=== PATIENT | female | born 1990 | race Hispanic/Latino ===

== ENCOUNTER 2018-02-25 07:25 | Emergency (ER) | payer SELFPAY ==
[2018-02-25 08:13] LABS: Absolute Lymphocytes (CBC) 1.2 K/uL (0.7-4.9); Absolute Monocytes 0.9 K/uL (0.1-1.3); Absolute Neutrophil 8.2 K/uL (1.8-8.0); Basophils % 0.4 % (0-1.3); Eosinophils % 0.1 % (0-4.4); Hematocrit 39.9 % (36.0-45.0); Lymphocytes % 11.8 % (15.3-44.8); MPV 8.8 fL (7.6-11.3); Monocytes % 8.9 % (3.3-12.3); RBC Red Blood Cell Count 4.76 M/uL (3.86-4.86)
[2018-02-25] MEDS ORDERED: ONDANSETRON 4 MG/2 ML VIAL ONE (08:13)
[2018-02-25] MEDS ORDERED: MORPHINE 4 MG/ML SYR ONE (08:13)
[2018-02-25] MEDS ORDERED: CEFTRIAXONE/SWI 1gm 1 GM/10 ML SYR ONE (08:14)
[2018-02-25] MEDS ORDERED: NA CHLORIDE 0.9% 1,000 ML ONE (08:14)
[2018-02-25 08:18] LABS: Urine Blood 1+ (NEG); Urine Glucose NEGATIVE (NEG); Urine Protein 2+ (NEG); Urine Specific Gravity 1.025 (1.005-1.030)
[2018-02-25 08:20] LABS: Urine Bacteria 20-50 /HPF (<20); Urine RBC 20-50 /HPF (NONE SEEN)
[2018-02-25 08:21] LABS: Urine Culture Reflex Order REFLEXED
[2018-02-25 08:29] LABS: ALT/SGPT 26 U/L (12-78); AST/SGOT 37 U/L (15-37); Albumin 3.5 g/dL (3.4-5.0); Alkaline Phosphatase 106 U/L (45-117); BUN Blood Urea Nitrogen 4 mg/dL (7-18); Bicarbonate 22 mmol/L (21-32); Bilirubin Direct 0.4 mg/dL (0-0.2); Bilirubin Total 1.6 mg/dL (0.2-1.0); Glucose Level 106 mg/dL (74-106); Lipase 91 U/L (73-393); Potassium 3.2 mmol/L (3.5-5.1); Protein, Total 7.8 g/dL (6.4-8.2); Sodium Level 139 mmol/L (136-145)
--- NOTE | 2018-02-25 09:51 | RAD REPORT ---
EXAM DESCRIPTION: CT - Abdomen Pelvis W Contrast - 02/25/2018 9:20 am CLINICAL HISTORY: Back pain, abdominal pain, history of gastric sleeve procedure performed out of mi untry 2 months earlier COMPARISON: CT imaging April 2016 TECHNIQUE: Biphasic, helical CT imaging of the abdomen and pelvis was performed following 100 ml non -ionic IV contrast. No oral contrast administered. All CT scans are performed using dose optimization technique as appropriate and may include automated exposure control or mA/KV adjustment according to patient size. FINDINGS: No suspicious findings in the lung bases. The liver, spleen, and pancreas show no suspicious findings. Gallbladder and biliary tree are also wi thout suspicious finding. Gallstones can be occult. Active gallbladder process is not suspected. No hydronephrosis. No solid mass of the kidneys. Both kidneys show heterogeneity in the enhancement p attern of the parenchyma particularly on the venous phase imaging. Jefferson of the right ureter are mild ly prominent. Urinary bladder jefferson are mildly prominent though this is difficult to accurately asses s in a contracted state. No uterus abnormality. A 2.5 centimeter right ovarian cyst is present. No fa llopian tube dilatation. Physiologic quantity of free fluid is present in the cul-de-sac. Attenuation value does not suggest blood. Gastric sleeve surgical changes are evident. No bowel wall thickening, edema or other finding to susp ect postsurgical complication. There are no acute upper abdominal findings. No dilated large or small bowel. No free air, pneumatosis or other site of inflammatory stranding. No hernia, mass or bulky lymphadenopathy. No suspicious bony findings. IMPRESSION: Suspected mild bilateral pyelonephritis. Correlation is needed with Clinical OR UA abnor malities. Urinary bladder wall is mildly prominent though difficult to accurately assess due to contraction. Cy stitis is not excluded. No abnormalities associated with a recent gastric sleeve. No acute GI process seen.
--- NOTE | 2018-02-25 09:58 | EDPHYS ---
Physician Documentation [facility] Name: Nat Hoover Age: 27 yrs Sex: Female : 1990 Arrival Date: 02/25/2018 Time: 07:28 Bed 14 Private MD: None, None ED Physician Kade Moore HPI: 02/25 07:49 This 27 yrs old Female presents to ER via Ambulatory with complaints of Back pm1 Pain, Nausea. 07:49 The patient complains of pain in the left low back and right low back. The pain does pm1 not radiate. Onset: The symptoms/episode began/occurred 3 day(s) ago. Modifying factors: The symptoms are alleviated by nothing. the symptoms are aggravated by nothing. Associated signs and symptoms: Pertinent positives: dysuria, fever, nausea, Pertinent negatives: diarrhea, vomiting. Severity of pain: in the emergency department the pain is actually worse. The patient has not experienced similar symptoms in the past. The patient has not recently seen a physician. Patient with bilateral flank pain for 3 days with burning with urination. Fever yesterday that resolved without the use of antipyretics. Reports 105 oral temperature. Patient took shower and drank Gatorade for fever reduction. 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 - Social history:: Smoking status: Patient uses tobacco products, denies chronic smoking, but will smoke occasionally. - Ebola Screening: : No symptoms or risks identified at this time. ROS: 07:49 Eyes: Negative for injury, pain, redness, and discharge, ENT: Negative for injury, pm1 pain, and discharge, Neck: Negative for injury, pain, and swelling, Cardiovascular: Negative for chest pain, palpitations, and edema, Respiratory: Negative for shortness of breath, cough, wheezing, and pleuritic chest pain, Abdomen/GI: Negative for abdominal pain, nausea, vomiting, diarrhea, and constipation. 07:49 MS/Extremity: Negative for injury and deformity, Skin: Negative for injury, rash, and discoloration, Neuro: Negative for headache, weakness, numbness, tingling, and seizure. 07:49 Constitutional: Positive for fever, Negative for poor PO intake. 07:49 Back: Positive for flank pain, bilaterally. 07:49 : Positive for burning with urination, foul smelling urine, Negative for vaginal bleeding, vaginal discharge. Exam: 07:49 Constitutional: This is a well developed, well nourished patient who is awake, alert, pm1 and in no acute distress. Head/Face: Normocephalic, atraumatic. Eyes: Pupils equal round and reactive to light, extra-ocular motions intact. Lids and lashes normal. Conjunctiva and sclera are non-icteric and not injected. Cornea within normal limits. Periorbital areas with no swelling, redness, or edema. ENT: Nares patent. No nasal discharge, no septal abnormalities noted. Tympanic membranes are normal and external auditory canals are clear. Oropharynx with no redness, swelling, or masses, exudates, or evidence of obstruction, uvula midline. Mucous membranes moist. Neck: Trachea midline, no thyromegaly or masses palpated, and no cervical lymphadenopathy. Supple, full range of motion without nuchal rigidity, or vertebral point tenderness. No Meningismus. Chest/axilla: Normal chest wall appearance and motion. Nontender with no deformity. No lesions are appreciated. 07:49 Respiratory: Lungs have equal breath sounds bilaterally, clear to auscultation and percussion. No rales, rhonchi or wheezes noted. No increased work of breathing, no retractions or nasal flaring. 07:49 Skin: Warm, dry with normal turgor. Normal color with no rashes, no lesions, and no evidence of cellulitis. MS/ Extremity: Pulses equal, no cyanosis. Neurovascular intact. Full, normal range of motion. 07:49 Cardiovascular: Rate: tachycardic, Rhythm: regular, Pulses: no pulse deficits are appreciated, Heart sounds: normal, normal S1and S2. 07:49 Abdomen/GI: Inspection: abdomen appears normal, Bowel sounds: normal, Palpation: soft, mild abdominal tenderness, in the suprapubic area, mass, is not appreciated, rebound tenderness, is not appreciated. 07:49 Back: pain, that is mild, of the left low back and right low back, ROM is normal, normal spinal alignment noted. 07:49 Neuro: Orientation: is normal, Motor: moves all fours, Gait: is steady, at a normal pace, without difficulty. Vital Signs: 07:33 BP 128 / 83; Pulse 126; Resp 18 S; Temp 98.8(O); Pulse Ox 96% on R/A; Weight 81.65 kg aa5 (R); Height 5 ft. 1 in. (154.94 cm) (R); Pain 10/10; 08:00 BP 106 / 67; Pulse 104; Resp 16 S; Pulse Ox 97% on R/A; aa5 08:42 BP 125 / 59; Pulse 62; Resp 18; Pulse Ox 96% on R/A; Pain 0/10; jb4 07:33 Body Mass Index 34.01 (81.65 kg, 154.94 cm) aa5 MDM: 07:33 Patient medically screened. pm1 07:55 Data reviewed: vital signs. Data interpreted: Pulse oximetry: on room air is 96 %. pm1 Interpretation: normal. 09:55 Counseling: I had a detailed discussion with the patient and/or guardian regarding: the pm1 historical points, exam findings, and any diagnostic results supporting the discharge/admit diagnosis, lab results, radiology results, the need for outpatient follow up, to return to the emergency department if symptoms worsen or persist or if there are any questions or concerns that arise at home. 02/25 07:39 Order name: Urine Microscopic Only; Complete Time: 08:31 pm1 02/25 07:42 Order name: Basic Metabolic Panel; Complete Time: 08:31 pm1 02/25 07:42 Order name: CBC with Diff; Complete Time: 08:16 pm1 02/25 07:42 Order name: Hepatic Function; Complete Time: 08:31 pm1 02/25 07:42 Order name: Lipase; Complete Time: 08:31 pm02/25 07:59 Order name: Urine Dipstick--Ancillary (enter results); Complete Time: 08:21 bd 02/25 07:44 Order name: CT Abd/Pelvis - W/Contrast: IV contrast only; Complete Time: 09:53 pm1 02/25 07:59 Order name: Urine --Ancillary (enter results); Complete Time: 08:21 bd 02/25 08:21 Order name: Urine Culture EDMS 02/25 07:39 Order name: Urine Dipstick-Ancillary (obtain specimen); Complete Time: 08:06 pm1 02/25 07:39 Order name: Urine Test (obtain specimen); Complete Time: 08:06 pm1 02/25 07:42 Order name: IV Saline Lock; Complete Time: 08:05 pm1 02/25 07:42 Order name: Labs collected and sent; Complete Time: 08:06 pm1 Administered Medications: 08:05 CANCELLED (Duplicate Order): Rocephin 1 grams IV at calculated rate once; Given slow IV jb4 push per pharmacy instructions 08:27 Drug: NS 0.9% 1000 ml Route: IV; Rate: 1000 ml; Site: right antecubital; jb4 09:30 Follow up: Response: No adverse reaction; IV Status: Completed infusion jb4 08:28 Drug: Zofran 4 mg Route: IVP; Site: right antecubital; jb4 08:35 Follow up: Response: No adverse reaction jb4 08:30 Drug: morphine 4 mg Route: IVP; Site: right antecubital; jb4 08:35 Follow up: Response: No adverse reaction jb4 08:34 Drug: Rocephin 1 grams Route: IV; Rate: calculated rate; Site: right antecubital; jb4 08:36 Follow up: IV Status: Completed infusion jb4 08:41 Follow up: Response: No adverse reaction jb4 Disposition: 15:22 Co-signature as Attending Physician, Kade Moore MD. rn Disposition: 02/25/18 09:57 Discharged to Home. Impression: Pyelonephritis. - Condition is Stable. - Discharge Instructions: Pyelonephritis, Adult. - Prescriptions for Bactrim DS 800- 160 mg Oral Tablet - take 1 tablet by ORAL route every 12 hours for 14 days; 28 tablet. Tylenol- Codeine #3 300-30 mg Oral Tablet - take 2 tablets by ORAL route every 6 hours As needed; 20 tablet. Zofran 4 mg Oral Tablet - take 1 tablet by ORAL route every 8 hours As needed; 20 tablet. - Medication Reconciliation Form, Thank You Letter, Antibiotic Education, Prescription Opioid Use, Work release form, Family Work Release form. - Follow up: Emergency Department; When: As needed; Reason: Worsening of condition. Follow up: Private Physician; When: 2 - 3 days; Reason: Recheck today's complaints, Continuance of care, Re-evaluation by your physician. - Problem is new. - Symptoms have improved. Signatures: Dispatcher [employer] EDKade Vasquez MD MD rn Calderon, Audri RN RN aa5 Ulises Fox NP EMERGENCY MEDICAL SERVICE MANAGER pm1 Osman Ward RN RN jb4 Corrections: (The following items were deleted from the chart) 08:05 08:05 Rocephin 1 grams IV at calculated rate once; Given slow IV push per pharmacy jb4 instructions ordered. jb4 11:03 09:57 02/25/2018 09:57 Discharged to Home. Impression: Pyelonephritis. Condition is aa5 Stable. Forms are Medication Reconciliation Form, Thank You Letter, Antibiotic Education, Prescription Opioid Use. Follow up: Emergency Department; When: As needed; Reason: Worsening of condition. Follow up: Private Physician; When: 2 - 3 days; Reason: Recheck today's complaints, Continuance of care, Re-evaluation by your physician. Problem is new. Symptoms have improved. pm1
--- NOTE | 2018-02-25 09:58 | ER ---
Nurse's Notes [facility] Name: Nat Hoover Age: 27 yrs Sex: Female : 1990 Arrival Date: 02/25/2018 Time: 07:28 Bed 14 Private MD: None, None Diagnosis: Pyelonephritis Presentation: 02/25 07:32 Presenting complaint: Patient states: lower back pain since Friday. Pt also reports aa5 nausea, denies vomiting. Reports cloudy urine x 2 days. Pt states "my fever was 105.0 F last night and I took a shower". 07:32 Transition of care: patient was not received from another setting of care. Onset of aa5 symptoms was February 2018. Risk Assessment: Do you want to hurt yourself or someone else? Patient reports no desire to harm self or others. Initial Sepsis Screen: Does the patient meet any 2 criteria? HR > 90 bpm. Does the patient have a suspected source of infection? No. Patient's initial sepsis screen is negative. Care prior to arrival: None. 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 - Social history:: Smoking status: Patient uses tobacco products, denies chronic smoking, but will smoke occasionally. - Ebola Screening: : No symptoms or risks identified at this time. Screenin:55 Abuse screen: Denies threats or abuse. Nutritional screening: No deficits noted. jb4 Tuberculosis screening: No symptoms or risk factors identified. Fall Risk IV access (20 points). Total Hughes Fall Scale indicates No Risk (0-24 pts). Assessment: 07:46 General: Appears in no apparent distress. uncomfortable, Behavior is calm, cooperative. jb4 Pain: Complains of pain in suprapubic area and back Pain does not radiate. Pain currently is 10 out of 10 on a pain scale. at worst was 10 out of 10 on a pain scale. level that patient reports is acceptable is 2 out of 10 on a pain scale. Quality of pain is described as crampy, Pain began 2-3 days ago. Neuro: Level of Consciousness is awake, alert, obeys commands, Oriented to person, place, time, situation. Cardiovascular: Heart tones S1 S2 present Patient's skin is warm and dry. Respiratory: Airway is patent Respiratory effort is even, unlabored, Respiratory pattern is regular, symmetrical, Breath sounds are clear bilaterally. GI: Abdomen is flat, Bowel sounds present X 4 quads. Abdomen is tender to palpation in suprapubic area Reports nausea. : Reports burning with urination. EENT: No signs and/or symptoms were reported regarding the EENT system. Derm: No signs and/or symptoms reported regarding the dermatologic system. Musculoskeletal: No signs and/or symptoms reported regarding the musculoskeletal system. 08:42 Reassessment: Patient and/or family updated on plan of care and expected duration. Pain jb4 level reassessed. Patient is alert, oriented x 3, equal unlabored respirations, skin warm/dry/pink. Pt reports feeling better \\T\\ denies nausea and pain after Zofran and morphine was given. Patient denies pain at this time. Patient states feeling better. 09:25 Reassessment: Patient and/or family updated on plan of care and expected duration. Pain jb4 level reassessed. Patient is alert, oriented x 3, equal unlabored respirations, skin warm/dry/pink. Pt wheeled back from CT. Vital Signs: 07:33 BP 128 / 83; Pulse 126; Resp 18 S; Temp 98.8(O); Pulse Ox 96% on R/A; Weight 81.65 kg aa5 (R); Height 5 ft. 1 in. (154.94 cm) (R); Pain 10/10; 08:00 BP 106 / 67; Pulse 104; Resp 16 S; Pulse Ox 97% on R/A; aa5 08:42 BP 125 / 59; Pulse 62; Resp 18; Pulse Ox 96% on R/A; Pain 0/10; jb4 07:33 Body Mass Index 34.01 (81.65 kg, 154.94 cm) aa5 ED Course: 07:28 Patient arrived in ED. mr 07:28 None, None is Private Physician. mr 07:32 Arm band placed on Patient placed in an exam room, on a stretcher. aa5 07:33 Marinas, Ulises, SUCTION DREDGE DUMPING SUPERVISOR is PHCP. pm1 07:33 Kade Moore MD is Attending Physician. pm1 07:40 Triage completed. aa5 07:45 Osman Ward, RN is Primary Nurse. jb4 07:45 Patient has correct armband on for positive identification. Bed in low position. Call jb4 light in reach. Side rails up X 1. Pulse ox on. NIBP on. 07:45 Urine collected: clean catch specimen, cloudy. jb4 07:55 Initial lab(s) drawn, by ky, sent to lab. Inserted saline lock: 22 gauge in right jb4 antecubital area, using aseptic technique. Blood collected. 09:19 CT Abd/Pelvis - W/Contrast: IV contrast only In Process Unspecified. EDMS 10:20 No provider procedures requiring assistance completed. IV discontinued, intact, jb4 bleeding controlled. Administered Medications: 08:05 CANCELLED (Duplicate Order): Rocephin 1 grams IV at calculated rate once; Given slow IV jb4 push per pharmacy instructions 08:27 Drug: NS 0.9% 1000 ml Route: IV; Rate: 1000 ml; Site: right antecubital; jb4 09:30 Follow up: Response: No adverse reaction; IV Status: Completed infusion jb4 08:28 Drug: Zofran 4 mg Route: IVP; Site: right antecubital; jb4 08:35 Follow up: Response: No adverse reaction jb4 08:30 Drug: morphine 4 mg Route: IVP; Site: right antecubital; jb4 08:35 Follow up: Response: No adverse reaction jb4 08:34 Drug: Rocephin 1 grams Route: IV; Rate: calculated rate; Site: right antecubital; jb4 08:36 Follow up: IV Status: Completed infusion jb4 08:41 Follow up: Response: No adverse reaction jb4 Outcome: 09:57 Discharge ordered by . pm1 10:20 Discharged to home ambulatory. jb4 10:20 Condition: stable 10:20 Discharge instructions given to patient, family, Instructed on discharge instructions, follow up and referral plans. medication usage, Demonstrated understanding of instructions, follow-up care, medications, Prescriptions given X 3. 10:30 Patient left the ED. aa5 Addendum: 02/28/2018 09:30 Addendum: Culture Results: Positive urine culture. Bacteria is resistant to, has h b intermediate sensitivity, or is not tested against prescribed antibiotics. Report given to PAULETTE for further evaluation and then to director volunteer services for follow up with patient. Phone call Attempt #1 voicemail box full. 14:20 Addendum: Culture Results: Phone call Attempt #2 voicemail box full. h b Signatures: Dispatcher [employer] Nica McnultyRuby, RN RN aa5 Ulises Fox, SUCTION DREDGE DUMPING SUPERVISOR SUCTION DREDGE DUMPING SUPERVISOR pm1 Meghan Gallegos RN RN Osman Ward RN RN jb4 Corrections: (The following items were deleted from the chart) 02/25 08:30 07:46 Pain: Complains of pain in suprapubic area and back Pain does not radiate. Pain jb4 currently is 8 out of 10 on a pain scale. at worst was 10 out of 10 on a pain scale. Quality of pain is described as crampy, jb4 08:33 07:55 Patient has correct armband on for positive identification. Bed in low position. jb4 Call light in reach. Side rails up X 1. jb4 08:33 07:55 Pulse ox on. NIBP on. jb4 jb4 12:56 11:03 Patient left the ED. aa5 aa5
== END 2018-02-25 11:03 | disposition home or self-care (01) ==
LOC: ER 07:25
DX: N12 Tubulo-interstitial nephritis, not specified as acute or chronic (principal); Z72.0 Tobacco use
CPT/HCPCS: 36415; 74177; 80048; 80076; 81003; 81015; 81025; 83690; 85025; 87077; 87086; 87088; 87186; 96361; 96374; 96375; 99284; J0696; J2405; J7030; Q9967

== ENCOUNTER 2018-02-25 23:22 | Emergency (ER) | payer SELFPAY ==
[2018-02-25] MEDS ORDERED: NA CHLORIDE 0.9% 1,000 ML ONE (23:58)
[2018-02-25] MEDS ORDERED: ONDANSETRON 4 MG/2 ML VIAL ONE (23:58)
[2018-02-26 00:08] LABS: Absolute Lymphocytes (CBC) 0.7 K/uL (0.7-4.9); Absolute Monocytes 0.7 K/uL (0.1-1.3); Absolute Neutrophil 8.9 K/uL (1.8-8.0); Basophils % 0.3 % (0-1.3); Hematocrit 37.2 % (36.0-45.0); Lymphocytes % 6.8 % (15.3-44.8); MCH 29.4 pg (27.0-35.0); MCV 84.1 fL (80-100); MPV 8.8 fL (7.6-11.3); Monocytes % 6.3 % (3.3-12.3); RBC Red Blood Cell Count 4.43 M/uL (3.86-4.86)
[2018-02-26 00:18] LABS: ALT/SGPT 24 U/L (12-78); AST/SGOT 26 U/L (15-37); Alkaline Phosphatase 96 U/L (45-117); BUN Blood Urea Nitrogen 5 mg/dL (7-18); Bicarbonate 24 mmol/L (21-32); Bilirubin Direct 0.3 mg/dL (0-0.2); Bilirubin Total 0.9 mg/dL (0.2-1.0); Glucose Level 143 mg/dL (74-106); Lipase 51 U/L (73-393); Potassium 3.5 mmol/L (3.5-5.1); Protein, Total 7.4 g/dL (6.4-8.2); Sodium Level 141 mmol/L (136-145)
--- NOTE | 2018-02-26 01:45 | ER ---
Nurse's Notes [facility] Name: Nat Hoover Age: 27 yrs Sex: Female : 1990 Arrival Date: 02/25/2018 Time: 23:23 Bed 7 Private MD: Diagnosis: Syncope and collapse Presentation: 02/25 23:37 Presenting complaint: Patient states: Pt reports she had several episodes of vomiting ea today and has not been feeling well since Friday. reports pt had 2 episodes of fainting , last one reported to be 15 minutes ago. Patient reports she is unable to tolerate medication, food or liquids. States "I started throwing up after I started taking the antibiotics and the other medications". Transition of care: patient was not received from another setting of care. Onset of symptoms was February 25, 2018. Risk Assessment: Do you want to hurt yourself or someone else? Patient reports no desire to harm self or others. Initial Sepsis Screen: Does the patient meet any 2 criteria? No. Patient's initial sepsis screen is negative. Does the patient have a suspected source of infection? No. Patient's initial sepsis screen is negative. Care prior to arrival: None. 23:37 Method Of Arrival: Ambulatory ea 23:37 Acuity: FERNANDO 3 ea Triage Assessment: 23:43 General: Appears uncomfortable, Behavior is appropriate for age. Pain: Denies pain. GI: ea Reports nausea, vomiting. 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 - Social history:: Smoking status: Patient/guardian denies using tobacco. - Ebola Screening: : No symptoms or risks identified at this time. Screenin/08 23:44 Abuse screen: Denies threats or abuse. Nutritional screening: No deficits noted. ea Tuberculosis screening: No symptoms or risk factors identified. Fall Risk Fall in past 12 months (25 points). Assessment: 23:45 General: Appears in no apparent distress. uncomfortable, Behavior is calm, cooperative, bs1 appropriate for age, flat. Pain: Denies pain. Neuro: Level of Consciousness is awake, alert, obeys commands, Oriented to person, place, time, situation, Appropriate for age Moves all extremities. Full function Gait is steady, Speech is normal, Facial symmetry appears normal, Pupils are PERRLA, Intact Reports a syncopal episode reports passing out twice for a couple of seconds after TAKING MEDICATION PRESCRIBED TO HER TODAY IN ER. Neuro: Denies blurred vision dizziness, numbness headache. Cardiovascular: Denies chest pain, lightheadedness, shortness of breath, Heart tones S1 S2 present Capillary refill < 3 seconds Patient's skin is warm and dry. Respiratory: Airway is patent Trachea midline Respiratory effort is even, unlabored, Respiratory pattern is regular, symmetrical, Breath sounds are clear bilaterally. GI: Abdomen is round non-distended, Bowel sounds present X 4 quads. Abd is soft and non tender X 4 quads. Reports intolerance of fluids, intolerance of food, nausea, vomiting. : No signs and/or symptoms were reported regarding the genitourinary system. EENT: No signs and/or symptoms were reported regarding the EENT system. Derm: Skin is intact, Skin is pink, warm \\T\\ dry. normal. Musculoskeletal: Circulation, motion, and sensation intact. Capillary refill < 3 seconds, Range of motion: intact in all extremities. 02/26 00:45 Reassessment: Informed patient/family of POC/pending lab results. bs1 02:00 Reassessment: Patient appears in no apparent distress at this time. Patient and/or bs1 family updated on plan of care and expected duration. Pain level reassessed. Patient is alert, oriented x 3, equal unlabored respirations, skin warm/dry/pink. Informed patient of dc instructions/POC. Vital Signs: 02/25 23:44 BP 107 / 83; Pulse 89; Resp 18; Temp 98.2; Pulse Ox 98% on R/A; Weight 79.38 kg; Height ea 5 ft. 1 in. (154.94 cm); Pain 0/10; 02/26 00:30 BP 97 / 53; Pulse 65; Resp 12; Pulse Ox 98% on R/A; bs1 01:15 BP 101 / 58; Pulse 60; Resp 16 S; Pulse Ox 98% on R/A; bs1 02/25 23:44 Body Mass Index 33.07 (79.38 kg, 154.94 cm) ea ED Course: 02/25 23:23 Patient arrived in ED. am2 23:33 Lino Porras MD is Attending Physician. gs 23:40 Arm band placed on right wrist. Patient placed in an exam room, on a stretcher, on ea pulse oximetry. 23:41 Triage completed. ea 23:45 Patient has correct armband on for positive identification. Bed in low position. Call ea light in reach. Side rails up X2. 23:56 Inserted saline lock: 20 gauge in right antecubital area, using aseptic technique. ea Blood collected. 23:59 Maria Elena Casper, MARCIN is Primary Nurse. bs1 02/26 01:44 Jade Harrison DO is Referral Physician. gs 02:07 No provider procedures requiring assistance completed. IV discontinued, bleeding bs1 controlled, No redness/swelling at site. Pressure dressing applied. Administered Medications: 02/25 23:59 Drug: NS 0.9% 1000 ml Route: IV; Rate: 1 bolus; Site: right antecubital; bs1 08 02:09 Follow up: IV Status: Completed infusion bs1 02/25 23:59 Drug: Zofran 4 mg Route: IVP; Site: right antecubital; bs1 02/26 02:08 Follow up: Response: No adverse reaction bs1 Outcome: 01:45 Discharge ordered by . 02:07 Discharged to home ambulatory, with significant other. bs1 02:07 Condition: stable 02:07 Discharge instructions given to patient, Instructed on discharge instructions, follow up and referral plans. medication usage, Demonstrated understanding of instructions, follow-up care, medications, Prescriptions given X 1. 02:11 Patient left the ED. bs1 Signatures: Bebe Larry am2 Tamara Zamora RN RN ea Starr, Gregory, MD MD gs Salazar, Brittany, RN RN bs1
--- NOTE | 2018-02-26 01:45 | EDPHYS ---
Physician Documentation [facility] Name: Nat Hoover Age: 27 yrs Sex: Female : 1990 Arrival Date: 02/25/2018 Time: 23:23 Bed 7 Private MD: ED Physician Lino Porras HPI: 02/26 01:42 This 27 yrs old Female presents to ER via Ambulatory with complaints of Passed gs Out Prior To Arrival, Nausea/Vomiting. 01:42 The patient has experienced syncope, became unresponsive. Onset: The symptoms/episode gs began/occurred acutely, just prior to arrival. Duration: This was a single episode, that lasted 30 minute(s). Context: the episode(s) was witnessed, by a significant other, occurred at home, occurred while the patient was vomiting, Just prior to the episode the patient experienced lightheadedness. Associated injury: Left upper extremity: contusion. Associated signs and symptoms: Pertinent negatives: agitation, ataxia, confusion. Current symptoms: Currently, the patient is not experiencing any symptoms, the patient feels back to baseline. The patient has not experienced similar symptoms in the past. 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 - Social history:: Smoking status: Patient/guardian denies using tobacco. - Ebola Screening: : No symptoms or risks identified at this time. ROS: 01:43 All other systems are negative. gs Exam: 01:43 Head/Face: Normocephalic, atraumatic. Eyes: Pupils equal round and reactive to light, gs extra-ocular motions intact. Lids and lashes normal. Conjunctiva and sclera are non-icteric and not injected. Cornea within normal limits. Periorbital areas with no swelling, redness, or edema. ENT: Nares patent. No nasal discharge, no septal abnormalities noted. Tympanic membranes are normal and external auditory canals are clear. Oropharynx with no redness, swelling, or masses, exudates, or evidence of obstruction, uvula midline. Mucous membranes moist. Neck: Trachea midline, no thyromegaly or masses palpated, and no cervical lymphadenopathy. Supple, full range of motion without nuchal rigidity, or vertebral point tenderness. No Meningismus. Chest/axilla: Normal chest wall appearance and motion. Nontender with no deformity. No lesions are appreciated. Cardiovascular: Regular rate and rhythm with a normal S1 and S2. No gallops, murmurs, or rubs. Normal PMI, no JVD. No pulse deficits. Respiratory: Lungs have equal breath sounds bilaterally, clear to auscultation and percussion. No rales, rhonchi or wheezes noted. No increased work of breathing, no retractions or nasal flaring. Abdomen/GI: Soft, non-tender, with normal bowel sounds. No distension or tympany. No guarding or rebound. No evidence of tenderness throughout. Back: No spinal tenderness. No costovertebral tenderness. Full range of motion. Skin: Warm, dry with normal turgor. Normal color with no rashes, no lesions, and no evidence of cellulitis. MS/ Extremity: Pulses equal, no cyanosis. Neurovascular intact. Full, normal range of motion. Neuro: Awake and alert, GCS 15, oriented to person, place, time, and situation. Cranial nerves II-XII grossly intact. Motor strength 5/5 in all extremities. Sensory grossly intact. Cerebellar exam normal. Normal gait. 01:43 Constitutional: The patient appears in no acute distress, alert, awake. 01:43 ECG was reviewed by the Attending Physician. Vital Signs: 02/25 23:44 BP 107 / 83; Pulse 89; Resp 18; Temp 98.2; Pulse Ox 98% on R/A; Weight 79.38 kg; Height ea 5 ft. 1 in. (154.94 cm); Pain 0/10; 02/26 00:30 BP 97 / 53; Pulse 65; Resp 12; Pulse Ox 98% on R/A; bs1 01:15 BP 101 / 58; Pulse 60; Resp 16 S; Pulse Ox 98% on R/A; bs1 02/25 23:44 Body Mass Index 33.07 (79.38 kg, 154.94 cm) ea MDM: 02/25 23:38 Patient medically screened. gs 02/26 01:43 Differential Diagnosis: cardiac arrhythmia, drug effect, vasovagal episode. Data reviewed: vital signs, nurses notes. Response to treatment: the patient's symptoms have resolved after treatment, patient is well hydrated. and as a result, I will discharge patient. 02/25 23:41 Order name: Basic Metabolic Panel 02/25 23:41 Order name: CBC with Diff; Complete Time: 01:39 02/25 23:41 Order name: Hepatic Function; Complete Time: 01:39 02/25 23:41 Order name: Lipase; Complete Time: 01:39 02/25 23:41 Order name: Basic Metabolic Panel; Complete Time: 01:39 EDMS 02/25 23:41 Order name: IV Saline Lock; Complete Time: 23:56 02/25 23:41 Order name: Labs collected and sent; Complete Time: 23:57 02/25 23:41 Order name: EKG; Complete Time: 23:41 02/25 23:41 Order name: EKG - Nurse/Tech; Complete Time: 23:59 gs EC:43 Rate is 74 beats/min. Rhythm is regular. MD interval is normal. QRS interval is normal. QT interval is normal. T waves are Normal. No ST changes noted. Clinical impression: Normal ECG. Interpreted by me. Administered Medications: 02/25 23:59 Drug: NS 0.9% 1000 ml Route: IV; Rate: 1 bolus; Site: right antecubital; 1 02/26 02:09 Follow up: IV Status: Completed infusion [facility] 02/25 23:59 Drug: Zofran 4 mg Route: IVP; Site: right antecubital; [facility] 02/26 02:08 Follow up: Response: No adverse reaction bs1 Disposition: 02/26/18 01:45 Discharged to Home. Impression: Syncope and collapse. - Condition is Stable. - Discharge Instructions: Syncope. - Prescriptions for Keflex 500 mg Oral Capsule - take 2 capsule by ORAL route every 12 hours for 7 days; 28 capsule. - Medication Reconciliation Form, Thank You Letter, Antibiotic Education, Prescription Opioid Use, Work release form, Family Work Release form. - Follow up: Jdae Harrison DO; When: 2 - 3 days; Reason: Re-evaluation by your physician. - Notes: stop bactrim Signatures: Dispatcher [employer] EDTamara Charles RN RN Lino Nelson MD MD gs Salazar, Brittany RN RN bs1 Corrections: (The following items were deleted from the chart) 02:11 01:45 02/26/2018 01:45 Discharged to Home. Impression: Syncope and collapse. Condition bs1 is Stable. Forms are Medication Reconciliation Form, Thank You Letter, Antibiotic Education, Prescription Opioid Use. Follow up: Jade Harrison; When: 2 - 3 days; Reason: Re-evaluation by your physician. landon
--- NOTE | 2018-02-26 08:28 | EKG ---
Test Date: 2018-02-25 Test Time: 23:55:13 Drawing In Hand: MARLENY MEASUREMENT RESULTS: Intervals: Rate: 74 NM: 154 QRSD: 88 QT: 366 QTc: 406 Morrill: P: 50 NM: 154 QRS: 9 T: 26 INTERPRETIVE STATEMENTS: Normal sinus rhythm Normal ECG No previous ECG available for comparison Electronically Signed On 02-26-18 07:46:43 CDT by Favio Read
== END 2018-02-26 02:11 | disposition home or self-care (01) ==
LOC: ER 23:22
DX: R55 Syncope and collapse (principal); R11.2 Nausea with vomiting, unspecified; Z98.84 Bariatric surgery status
CPT/HCPCS: 36415; 80048; 80076; 83690; 85025; 93005; 96361; 96374; 99284; J2405; J7030

== ENCOUNTER 2019-03-08 09:03 | Emergency (ER) | payer SELFPAY ==
[2019-03-08 09:39] LABS: Absolute Lymphocytes (CBC) 1.3 K/uL (0.7-4.9); Basophils % 0.6 % (0-1.3); Lymphocytes % 45.6 % (15.3-44.8); MPV 8.4 fL (7.6-11.3); RBC Red Blood Cell Count 4.34 M/uL (3.86-4.86)
[2019-03-08 10:01] LABS: Platelet Estimate ADEQ
[2019-03-08 10:02] LABS: Blood Morphology Comment NOT SEEN (NOT SEEN)
[2019-03-08 10:04] LABS: BUN Blood Urea Nitrogen 7 mg/dL (7-18); Bicarbonate 25 mmol/L (21-32); Glucose Level 88 mg/dL (74-106); HCG, Quantitative 664 mIU/mL (1-3); Potassium 3.6 mmol/L (3.5-5.1); Sodium Level 141 mmol/L (136-145)
--- NOTE | 2019-03-08 10:40 | ER ---
Nurse's Notes [facility] Name: Nat Hoover Age: 28 yrs Sex: Female : 1990 Arrival Date: 03/08/2019 Time: 09:06 Bed 20 Private MD: Diagnosis: Threatened Presentation: 03/08 09:13 Presenting complaint: Patient states: LMP- 01/18/19; "i started bleeding from my vagina hj since this AM and my L lower abd and L groin area hurts; denies N/V; pain is 8/10;. 09:13 Transition of care: patient was not received from another setting of care. Onset of hj symptoms was March 08, 2019. Risk Assessment: Do you want to hurt yourself or someone else? Patient reports no desire to harm self or others. Initial Sepsis Screen: Does the patient meet any 2 criteria? No. Patient's initial sepsis screen is negative. Does the patient have a suspected source of infection? No. Patient's initial sepsis screen is negative. Care prior to arrival: None. 09:13 Method Of Arrival: Ambulatory 09:13 Acuity: FERNANDO 3 hj Triage Assessment: 09:13 General: Appears in no apparent distress. uncomfortable, Behavior is calm, cooperative, hj appropriate for age. Pain: Complains of pain in pelvis and left lower quadrant. : Reports vaginal bleeding that is. 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 - Social history:: Smoking status: Patient/guardian denies using tobacco, Patient/guardian denies using alcohol. - Ebola Screening: : Patient negative for fever greater than or equal to 101.5 degrees Fahrenheit, and additional compatible Ebola Virus Disease symptoms Patient denies exposure to infectious person Patient denies travel to an Ebola-affected area in the 21 days before illness onset. Screenin:13 Abuse screen: Denies threats or abuse. Denies injuries from another. Nutritional hj screening: No deficits noted. Tuberculosis screening: No symptoms or risk factors identified. Fall Risk None identified. Assessment: 09:13 General: Appears in no apparent distress. uncomfortable, Behavior is calm, cooperative, hj appropriate for age. Pain: Complains of pain in pelvis and left lower quadrant. Neuro: Level of Consciousness is awake, alert, obeys commands, Oriented to person, place, time, situation, Appropriate for age. Cardiovascular: Capillary refill < 3 seconds Patient's skin is warm and dry. Respiratory: Airway is patent Respiratory effort is even, unlabored, Respiratory pattern is regular, symmetrical. GI: No signs and/or symptoms were reported involving the gastrointestinal system. : No signs and/or symptoms were reported regarding the genitourinary system. : Reports vaginal bleeding that is. EENT: No signs and/or symptoms were reported regarding the EENT system. Derm: No signs and/or symptoms reported regarding the dermatologic system. Musculoskeletal: No signs and/or symptoms reported regarding the musculoskeletal system. 10:41 Obstetrical Assessment: N/A. Vital Signs: 09:13 BP 109 / 62; Pulse 85; Resp 18; Temp 97.7(O); Pulse Ox 100% on R/A; Weight 67.13 kg; hj Height 5 ft. 2 in. (157.48 cm); Pain 8/10; 10:42 BP 108 / 60; Pulse 84; Resp 18; Pulse Ox 100% on R/A; hj 09:13 Body Mass Index 27.07 (67.13 kg, 157.48 cm) Vitals: 10:41 Heart Tones N/A. ED Course: 09:06 Patient arrived in ED. mr 09:10 Viktoriya Cox FNP-C is PHCP. kb 09:10 Kade Moore MD is Attending Physician. kb 09:13 Patient has correct armband on for positive identification. Bed in low position. Call light in reach. Side rails up X 1. Adult w/ patient. 09:14 Jean Casey, MARCIN is Primary Nurse. hj 09:17 Triage completed. hj 09:18 Arm band placed on right wrist. hj 09:30 Initial lab(s) drawn, by nd, sent to lab. Inserted saline lock: 22 gauge in right antecubital area, using aseptic technique. Blood collected. 09:44 Test, Serum Sent. hj 10:21 US Transvaginal Ob In Process Unspecified. EDMS 10:40 No provider procedures requiring assistance completed. IV discontinued, intact, hj bleeding controlled, No redness/swelling at site. Pressure dressing applied. Administered Medications: No medications were administered Point of Care Testing: Urine : 10:41 hCG Reading: Positive; Control Reading: Positive; hj Outcome: 10:40 Discharge ordered by . kb 10:40 Discharged to home ambulatory, with family. hj 10:40 Condition: stable 10:40 Discharge instructions given to patient, family, Instructed on discharge instructions, follow up and referral plans. Demonstrated understanding of instructions, follow-up care. 10:48 Patient left the ED. hj Signatures: Dispatcher [employer] EDMS Viktoriya Cox, KYARA PILLAIP-Nazanin Hamlin Henry, RN RN hj
--- NOTE | 2019-03-08 10:41 | EDPHYS ---
Physician Documentation [facility] Name: Nat Hoover Age: 28 yrs Sex: Female : 1990 Arrival Date: 03/08/2019 Time: 09:06 Bed 20 Private MD: ED Physician Kade Moore HPI: 03/08 09:13 This 28 yrs old Female presents to ER via Unassigned with complaints of kb Vaginal Bleeding, + Preg <12wks, Abdominal Cramping. 09:13 The patient presents to the emergency department with abdominal pain, of the left lower kb quadrant, that started this morning, described as crampy, vaginal bleeding, described as spotting. course: care: none, Leakage of Fluid: none appreciated, Ultrasound: the patient has not had an ultrasound, Risk/complications: no obvious risks or complications are appreciated. Previous pregnancies: in previous pregnancies patient has had. Associated signs and symptoms: Pertinent positives: abdominal pain, vaginal bleeding. The patient has not experienced similar symptoms in the past. The patient has not recently seen a physician. Pt reports left sided abd pain/cramping and had some spotting this morning. no bleeding at this time. 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 - Social history:: Smoking status: Patient/guardian denies using tobacco, Patient/guardian denies using alcohol. - Ebola Screening: : Patient negative for fever greater than or equal to 101.5 degrees Fahrenheit, and additional compatible Ebola Virus Disease symptoms Patient denies exposure to infectious person Patient denies travel to an Ebola-affected area in the 21 days before illness onset. ROS: 09:13 Constitutional: Negative for fever, chills, and weight loss, ENT: Negative for injury, kb pain, and discharge, Neck: Negative for injury, pain, and swelling, Cardiovascular: Negative for chest pain, palpitations, and edema, Respiratory: Negative for shortness of breath, cough, wheezing, and pleuritic chest pain, Back: Negative for injury and pain, MS/Extremity: Negative for injury and deformity, Skin: Negative for injury, rash, and discoloration, Neuro: Negative for headache, weakness, numbness, tingling, and seizure. 09:13 Abdomen/GI: Positive for abdominal pain. 09:13 : Positive for vaginal bleeding. Exam: :14 Constitutional: This is a well developed, well nourished patient who is awake, alert, kb and in no acute distress. Head/Face: Normocephalic, atraumatic. ENT: Nares patent. No nasal discharge, no septal abnormalities noted. Tympanic membranes are normal and external auditory canals are clear. Oropharynx with no redness, swelling, or masses, exudates, or evidence of obstruction, uvula midline. Mucous membranes moist. Neck: Trachea midline, no thyromegaly or masses palpated, and no cervical lymphadenopathy. Supple, full range of motion without nuchal rigidity, or vertebral point tenderness. No Meningismus. Chest/axilla: Normal chest wall appearance and motion. Nontender with no deformity. No lesions are appreciated. Cardiovascular: Regular rate and rhythm with a normal S1 and S2. No gallops, murmurs, or rubs. Normal PMI, no JVD. No pulse deficits. Respiratory: Lungs have equal breath sounds bilaterally, clear to auscultation and percussion. No rales, rhonchi or wheezes noted. No increased work of breathing, no retractions or nasal flaring. Back: No spinal tenderness. No costovertebral tenderness. Full range of motion. Skin: Warm, dry with normal turgor. Normal color with no rashes, no lesions, and no evidence of cellulitis. MS/ Extremity: Pulses equal, no cyanosis. Neurovascular intact. Full, normal range of motion. Neuro: Awake and alert, GCS 15, oriented to person, place, time, and situation. Cranial nerves II-XII grossly intact. Motor strength 5/5 in all extremities. Sensory grossly intact. Cerebellar exam normal. Normal gait. :14 Abdomen/GI: Inspection: abdomen appears normal, Bowel sounds: normal, in all quadrants, Palpation: soft, in all quadrants, mild abdominal tenderness, in the left lower quadrant. Vital Signs: 09:13 BP 109 / 62; Pulse 85; Resp 18; Temp 97.7(O); Pulse Ox 100% on R/A; Weight 67.13 kg; hj Height 5 ft. 2 in. (157.48 cm); Pain 8/10; 10:42 BP 108 / 60; Pulse 84; Resp 18; Pulse Ox 100% on R/A; hj 09:13 Body Mass Index 27.07 (67.13 kg, 157.48 cm) hj MDM: 09:11 Patient medically screened. kb 09:14 Data reviewed: vital signs, nurses notes. Data interpreted: Pulse oximetry: on room air kb is 100 %. Interpretation: normal. 10:29 Counseling: I had a detailed discussion with the patient and/or guardian regarding: the kb historical points, exam findings, and any diagnostic results supporting the discharge/admit diagnosis, lab results, radiology results, the need for outpatient follow up, an OB/Gyne specialist, to return to the emergency department if symptoms worsen or persist or if there are any questions or concerns that arise at home. 03/08 09:13 Order name: Quantitative Hcg; Complete Time: 10:05 kb 03/08 09:13 Order name: Abo/rh Typing; Complete Time: 10:05 kb 03/08 09:13 Order name: Basic Metabolic Panel; Complete Time: 10:05 kb 03/08 09:13 Order name: CBC with Diff; Complete Time: 10:05 kb 03/08 09:37 Order name: Test, Serum; Complete Time: 10:29 bd 03/08 09:42 Order name: Urine Dipstick--Ancillary (enter results) bd 03/08 09:13 Order name: Urine Test (obtain specimen); Complete Time: 09:33 kb 03/08 09:13 Order name: IV Saline Lock; Complete Time: 09:33 kb 03/08 09:13 Order name: Labs collected and sent; Complete Time: 09:33 kb 03/08 09:13 Order name: NPO; Complete Time: 09:34 kb 03/08 09:13 Order name: Urine Dipstick-Ancillary (obtain specimen); Complete Time: 09:34 kb 03/08 10:02 Order name: Manual Differential; Complete Time: 10:05 EDMS 03/08 10:05 Order name: US Transvaginal Ob kb Administered Medications: No medications were administered Point of Care Testing: Urine : 10:41 hCG Reading: Positive; Control Reading: Positive; hj Disposition: 13:23 Co-signature as Attending Physician, Kade Moore MD. rn Disposition: 03/08/19 10:40 Discharged to Home. Impression: Threatened . - Condition is Stable. - Discharge Instructions: Threatened Miscarriage, [id number]. - Medication Reconciliation Form, Thank You Letter, Antibiotic Education, Prescription Opioid Use form. - Follow up: Emergency Department; When: As needed; Reason: Worsening of condition. Follow up: Private Physician; When: 2 - 3 days; Reason: Recheck today's complaints, Continuance of care, Re-evaluation by your physician. Signatures: Dispatcher [employer] EDMS Viktoriya Cox, COSTUMER-C COSTUMER-Ckb Kade Moore MD MD rn Joaquin, Henry, RN RN hj Corrections: (The following items were deleted from the chart) 10:48 10:40 03/08/2019 10:40 Discharged to Home. Impression: Threatened . Condition hj is Stable. Forms are Medication Reconciliation Form, Thank You Letter, Antibiotic Education, Prescription Opioid Use. Follow up: Emergency Department; When: As needed; Reason: Worsening of condition. Follow up: Private Physician; When: 2 - 3 days; Reason: Recheck today's complaints, Continuance of care, Re-evaluation by your physician. kb
--- NOTE | 2019-03-08 10:58 | RAD REPORT ---
EXAM DESCRIPTION: US - Transvaginal OB - 03/08/2019 10:31 am CLINICAL HISTORY: ABD PAIN Pelvic pain COMPARISON: No comparisons FINDINGS: The uterus is normal in size. No IUP is seen within the endometrium. The maternal adnexa and ovaries are within normal limits. Normal Doppler blood flow was demonstrated to both ovaries. No adnexal masses. A small amount of free fluid is seen in the pelvis. IMPRESSION: No IUP is identified in the uterus. In this setting of an elevated HCG level, this would be compatible with a of unknown location. Advise HCG serial measurements and follow-up son ography in 7-10 days.
[2019-03-08 13:13] LABS: Urine Blood NEGATIVE (NEG); Urine Glucose NEGATIVE (NEG); Urine Protein NEGATIVE (NEG); Urine Specific Gravity <1.005 (1.005-1.030)
== END 2019-03-08 10:48 | disposition home or self-care (01) ==
LOC: ER 09:03
DX: O20.0 Threatened abortion (principal); Z3A.00 Weeks of gestation of pregnancy not specified
CPT/HCPCS: 36415; 76817; 80048; 81003; 84702; 84703; 85025; 86900; 86901; 99284

== ENCOUNTER 2019-03-10 08:47 | Emergency (ER) | payer OTHER, SELFPAY ==
--- NOTE | 2019-03-10 10:05 | EDPHYS ---
Physician Documentation [facility] Name: Nat Hoover Age: 28 yrs Sex: Female : 1990 Arrival Date: 03/10/2019 Time: 08:48 Bed 14 Private MD: ED Physician Kade Moore HPI: 03/10 10:13 This 28 yrs old Female presents to ER via Ambulatory with complaints of HCG jr8 recheck. 10:13 The patient presents to the emergency department with abdominal pain, of the right jr8 lower quadrant and left lower quadrant, described as crampy, intermittent, vaginal bleeding, described as spotting. The estimated gestational age is 6 weeks. course: care: none. Previous pregnancies: the patient has never been . Associated signs and symptoms: The patient has no apparent associated signs or symptoms. The patient has not experienced similar symptoms in the past. The patient has been recently seen at the [facility] Emergency Department, for similar complaints labs were performed, an ultrasound was performed, 2 days ago. Patient had US and labs done 2 days ago. HCG in the 600s with no visible IUP. Came back today feeling better. No spotting but still having cramping. Was told to come back for HCG recheck . 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 - Social history:: Smoking status: Patient/guardian denies using tobacco. - Ebola Screening: : Patient negative for fever greater than or equal to 101.5 degrees Fahrenheit, and additional compatible Ebola Virus Disease symptoms Patient denies exposure to infectious person Patient denies travel to an Ebola-affected area in the 21 days before illness onset No symptoms or risks identified at this time. ROS: 10:13 Eyes: Negative for injury, pain, redness, and discharge, ENT: Negative for injury, jr8 pain, and discharge, Neck: Negative for injury, pain, and swelling, Cardiovascular: Negative for chest pain, palpitations, and edema, Respiratory: Negative for shortness of breath, cough, wheezing, and pleuritic chest pain, Abdomen/GI: Negative for abdominal pain, nausea, vomiting, diarrhea, and constipation, Back: Negative for injury and pain, MS/Extremity: Negative for injury and deformity, Skin: Negative for injury, rash, and discoloration, Neuro: Negative for headache, weakness, numbness, tingling, and seizure. 10:13 : Positive for vaginal bleeding, Negative for urinary symptoms, pelvic pain, burning with urination, vaginal discharge, vaginal itching. Exam: 10:13 Eyes: Pupils equal round and reactive to light, extra-ocular motions intact. Lids and jr8 lashes normal. Conjunctiva and sclera are non-icteric and not injected. Cornea within normal limits. Periorbital areas with no swelling, redness, or edema. ENT: Nares patent. No nasal discharge, no septal abnormalities noted. Tympanic membranes are normal and external auditory canals are clear. Oropharynx with no redness, swelling, or masses, exudates, or evidence of obstruction, uvula midline. Mucous membranes moist. Neck: Trachea midline, no thyromegaly or masses palpated, and no cervical lymphadenopathy. Supple, full range of motion without nuchal rigidity, or vertebral point tenderness. No Meningismus. Cardiovascular: Regular rate and rhythm with a normal S1 and S2. No gallops, murmurs, or rubs. Normal PMI, no JVD. No pulse deficits. Respiratory: Lungs have equal breath sounds bilaterally, clear to auscultation and percussion. No rales, rhonchi or wheezes noted. No increased work of breathing, no retractions or nasal flaring. Abdomen/GI: Soft, non-tender, with normal bowel sounds. No distension or tympany. No guarding or rebound. No evidence of tenderness throughout. Back: No spinal tenderness. No costovertebral tenderness. Full range of motion. Skin: Warm, dry with normal turgor. Normal color with no rashes, no lesions, and no evidence of cellulitis. MS/ Extremity: Pulses equal, no cyanosis. Neurovascular intact. Full, normal range of motion. Neuro: Awake and alert, GCS 15, oriented to person, place, time, and situation. Cranial nerves II-XII grossly intact. Motor strength 5/5 in all extremities. Sensory grossly intact. Cerebellar exam normal. Normal gait. Vital Signs: 09:10 BP 115 / 64; Pulse 77; Resp 16; Temp 98.2; Pulse Ox 100% ; Weight 65.32 kg; Height 5 iw ft. 2 in. (157.48 cm); Pain 0/10; 10:11 BP 118 / 65; Pulse 70; Resp 18; Pulse Ox 100% on R/A; hj 09:10 Body Mass Index 26.34 (65.32 kg, 157.48 cm) iw MDM: 09:01 Patient medically screened. jr8 10:01 Data reviewed: vital signs, nurses notes, lab test result(s), and as a result, I will jr8 discharge patient. Data interpreted: Pulse oximetry: on room air is 100 %. Interpretation: normal. Counseling: I had a detailed discussion with the patient and/or guardian regarding: the historical points, exam findings, and any diagnostic results supporting the discharge/admit diagnosis, lab results, the need for outpatient follow up, an OB/Gyne specialist, to return to the emergency department if symptoms worsen or persist or if there are any questions or concerns that arise at home. ED course: Patient no longer spotting from the other day. HCG elevating. Recommended continued rest without straining or over working since she still is having intermittent cramping. Otherwise no indication of miscarry at this point. That she needs to have another US in one week. Patient happy and would f/u . 03/10 09:01 Order name: HCG-Quantitative; Complete Time: 10:00 jr8 Administered Medications: No medications were administered Disposition: 14:10 Co-signature as Attending Physician, Kade Moore MD. rn Disposition: 03/10/19 10:04 Discharged to Home. Impression: Threatened . - Condition is Stable. - Discharge Instructions: Threatened Miscarriage, Vaginal Bleeding During , First Trimester, Pelvic Rest. - Medication Reconciliation Form, Thank You Letter, Antibiotic Education, Prescription Opioid Use form. - Follow up: Private Physician; When: 1 week; Reason: Recheck today's complaints, Continuance of care, Repeat Beta-HCG (48 Hours), Re-evaluation by your physician, Ultrasound to assess to see if yolk sac is present. - Problem is new. - Symptoms have improved. Signatures: Dispatcher [employer] Nany Vaughn, RN RN iw Kade Moore MD MD rn Roszak, Josh, PA PA jr8 Jean Casey RN RN hj Corrections: (The following items were deleted from the chart) 10:15 10:01 ED course: Patient no longer spotting from the other day. HCG elevating. jr8 Recommended continued rest without straining or over working since she still is having intermittent cramping. Otherwise no indication of miscarry at this point. Patient happy and would f/u . jr8 10:16 10:04 03/10/2019 10:04 Discharged to Home. Impression: Threatened . Condition hj is Stable. Forms are Medication Reconciliation Form, Thank You Letter, Antibiotic Education, Prescription Opioid Use. Follow up: Private Physician; When: 1 week; Reason: Recheck today's complaints, Continuance of care, Repeat Beta-HCG (48 Hours), Re-evaluation by your physician, Ultrasound to assess to see if yolk sac is present. Problem is new. Symptoms have improved. jr8
--- NOTE | 2019-03-10 10:05 | ER ---
Nurse's Notes [facility] Name: Nat Hoover Age: 28 yrs Sex: Female : 1990 Arrival Date: 03/10/2019 Time: 08:48 Bed 14 Private MD: Diagnosis: Threatened Presentation: 03/10 09:06 Presenting complaint: Patient states: was seen here two days ago for possible iw miscarriage, is approx 5 weeks , was spotting and cramping, was told to come back for HCG level check. Transition of care: patient was not received from another setting of care. Onset of symptoms was March 06, 2019. Risk Assessment: Do you want to hurt yourself or someone else? Patient reports no desire to harm self or others. Initial Sepsis Screen: Does the patient meet any 2 criteria? No. Patient's initial sepsis screen is negative. Does the patient have a suspected source of infection? No. Patient's initial sepsis screen is negative. Care prior to arrival: None. 09:06 Method Of Arrival: Ambulatory iw 09:06 Acuity: FERNANDO 3 iw Triage Assessment: 09:34 General: Appears in no apparent distress. uncomfortable, Behavior is calm, cooperative, hj appropriate for age. Pain:. 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 - Social history:: Smoking status: Patient/guardian denies using tobacco. - Ebola Screening: : Patient negative for fever greater than or equal to 101.5 degrees Fahrenheit, and additional compatible Ebola Virus Disease symptoms Patient denies exposure to infectious person Patient denies travel to an Ebola-affected area in the 21 days before illness onset No symptoms or risks identified at this time. Screenin:06 Abuse screen: Denies threats or abuse. Denies injuries from another. Nutritional hj screening: No deficits noted. Tuberculosis screening: No symptoms or risk factors identified. Fall Risk None identified. Assessment: 09:10 General: Appears in no apparent distress. uncomfortable, Behavior is calm, cooperative, hj appropriate for age. Pain: Denies pain. Neuro: Level of Consciousness is awake, alert, obeys commands, Oriented to person, place, time, situation, Appropriate for age. Cardiovascular: Capillary refill < 3 seconds Patient's skin is warm and dry. Respiratory: Airway is patent Respiratory effort is even, unlabored, Respiratory pattern is regular, symmetrical. GI: No signs and/or symptoms were reported involving the gastrointestinal system. : No signs and/or symptoms were reported regarding the genitourinary system. EENT: No signs and/or symptoms were reported regarding the EENT system. Derm: No signs and/or symptoms reported regarding the dermatologic system. Musculoskeletal: No signs and/or symptoms reported regarding the musculoskeletal system. Vital Signs: 09:10 BP 115 / 64; Pulse 77; Resp 16; Temp 98.2; Pulse Ox 100% ; Weight 65.32 kg; Height 5 iw ft. 2 in. (157.48 cm); Pain 0/10; 10:11 BP 118 / 65; Pulse 70; Resp 18; Pulse Ox 100% on R/A; hj 09:10 Body Mass Index 26.34 (65.32 kg, 157.48 cm) iw ED Course: 08:48 Patient arrived in ED. cf2 08:58 Jean Casey RN is Primary Nurse. hj 09:01 [place] PA is PHCP. jr8 09:01 Kade Moore MD is Attending Physician. jr8 09:10 Triage completed. iw 09:10 Arm band placed on. iw 09:10 Patient has correct armband on for positive identification. Placed in gown. Bed in low hj position. Call light in reach. Side rails up X 1. Adult w/ patient. 10:15 No provider procedures requiring assistance completed. Patient did not have IV access hj during this emergency room visit. Administered Medications: No medications were administered Outcome: 10:04 Discharge ordered by . jr8 10:15 Discharged to home ambulatory, with family. hj 10:15 Condition: stable 10:15 Discharge instructions given to patient, family, Instructed on discharge instructions, follow up and referral plans. Demonstrated understanding of instructions, follow-up care. 10:16 Patient left the ED. hj Signatures: Nany Chandler RN RN Lenin Diaz PA PA jr8 Jean Casey, RN RN Uma Muller 2
== END 2019-03-10 10:16 | disposition home or self-care (01) ==
LOC: ER 08:47
DX: O20.0 Threatened abortion (principal); Z3A.01 Less than 8 weeks gestation of pregnancy
CPT/HCPCS: 36415; 84702; 99281